=== PATIENT | male | born 1970 | race Hispanic/Latino ===

== ENCOUNTER 2018-05-18 23:41 | Emergency (ER) | payer OTHER ==
[~2018-05-18] VITALS: Ht 188 cm; Wt 121.1 kg
[2018-05-18 23:57] VITALS: BP 158/111
--- NOTE | 2018-05-19 00:05 | NUR ---
SUTURES DR GORDON AT BEDSIDE TO SUTURE WOUND. SUPERFICIAL, BLEEDING CONTROLLED STERILE GAUZE DRESSING HELD BY PATIENT.
[2018-05-19 00:15] VITALS: BP 144/99
[2018-05-19] MEDS ORDERED: TETANUS DIPHTHERIA TOXOIDS IM ONE (00:15)
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
--- NOTE | 2018-05-19 00:29 | NUR ---
[facility] CONTACTED AT THIS TIME FOR POSSIBLE PATIENT TRANSPORT BACK TO [facility]. 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
[2018-05-19 00:30] VITALS: BP 140/98
[2018-05-19] MEDS ORDERED: BOOSTRIX TDAP IM ONE (00:30)
--- NOTE | 2018-05-19 00:30 | NUR ---
[facility] STATES THEY CAN TAKE HIM BACK TO HIS TRUCK, HOWEVER, IT WILL BE A LITTLE WHILE BEFORE THEY GET HERE. INFORMED PATIENT, DRINK AND WARM BLANKET PROVIDED. VOICED APPRECIATION, DENIES FURTHER NEEDS
[2018-05-19 01:38] VITALS: BP 140/98
== END 2018-05-19 00:30 | disposition home or self-care (01) ==
LOC: ER 23:41
DX: S21.112A Laceration without foreign body of left front wall of thorax without penetration into thoracic cavity, initial encounter (principal); E11.9 Type 2 diabetes mellitus without complications; I10 Essential (primary) hypertension; F17.210 Nicotine dependence, cigarettes, uncomplicated; Z90.89 Acquired absence of other organs; W26.0XXA Contact with knife, initial encounter; Y93.89 Activity, other specified; Y92.69 Other specified industrial and construction area as the place of occurrence of the external cause; Y99.0 Civilian activity done for income or pay
CPT/HCPCS: 12002; 90471; 90714; 90715; 99283